=== PATIENT | female | born 2000 | race Hispanic/Latino ===

== ENCOUNTER 2024-03-18 21:33 | Emergency (ER) | payer BC, SELFPAY ==
[2024-03-18 21:35] VITALS: BP 112/84
--- NOTE | 2024-03-18 22:06 | ED.GENMED ---
History of Present Illness
General
Chief Complaint: Exposure-Chemical
Source: patient
Exam Limitations: none
Time Seen by Provider: 03/18/24 21:56
Travel History
Have you had any contact with someone who has COVID-19?: No
Do you have any symptoms of coronavirus? Fever > 100 degrees, chills, cough, shortness of breath, sore throat, loss of taste or smell, muscle aches, or headache?: No
History of Present Illness
History of Present Illness:
Line new detergent splashed in the patient's right eye and into her mouth and face about an hour ago. Complaining of irritation of the right eye. No other significant complaints. No contact
Past History
Past History
ED Past Medical History: None
ED Past Surgical History: Other (gastric sleeve surgery)
Social History
Tobacco: Non-smoker
Review of Systems
Review of Systems
All Other Systems: Not applicable
Phy Exam
Physical Exam
Physical Exam:
General: Nontoxic appearing in no distress
Skin: Warm and dry, no rash
Neuro: Alert, nontoxic, grossly nonfocal
Psychiatric: Good eye contact and appropriate
Eye: Very minimal conjunctival injection to the right eye. Cornea clear. This sharp. Fluorescein negative.
ENT: Face normal. Intraoral normal.
Course
Vital Signs
Initial and Last Documented VS:
Initial Vital Signs
Temp Pulse Resp BP Pulse Ox
97.8 F 100 22 112/84 100
03/18/24 21:35 03/18/24 21:35 03/18/24 21:35 03/18/24 21:35 03/18/24 21:35
Last Documented Vital Signs
Temp Pulse Resp BP Pulse Ox
97.8 F 100 22 112/84 100
03/18/24 21:35 03/18/24 21:35 03/18/24 21:35 03/18/24 21:35 03/18/24 21:35
*Critical Care Note
Total Time (30-74mins, 75-104mins- exclusive of procedures): Not Applicable
Update Note
Update Note:
Chemical detergent irritant. Will flush the eye. Stable for discharge
ED Attending Note
-
Portions of this chart may have been created with voice recognition software.� Occasional wrong word or��sound alike� substitutions may have occurred due to the inherent limitations of voice recognition software.
Discharge Plan
Departure
Patient Disposition: Home (Routine Discharge)
Date of Disposition: 03/18/24
Time of Disposition: 22:08
Patient with high blood pressure during this ER visit?: No
Discharge Problem:
Chemical exposure right eye and face
Instructions: Chemical Exposure to the Skin (DC)
Prescriptions:
No Action
ondansetron 4 MG tablet,disintegrating
4 mg PO TIDPRN PRN (Reason: nausea) Qty: 9 0RF
omeprazole 40 mg Capsule,Delayed Release(Dr/Ec)
40 mg PO DAILY
cholecalciferol (vitamin D3) [Vitamin D3] 125 mcg (5,000 unit) Tablet
1.25 PO WEEKLY
Centrum
1 tab PO DAILY
Vitamin C
1 tab PO DAILY
Patient Comments:
unsure of mg
Activity Restrictions/Additional Instructions:
This should all self resolve
Recheck with persistent irritation, drainage, visual troubles, facial burning or any other persistent symptoms
Interventions
Interventions:
*Risk Screen - Suicide Last Done: 03/18/24 21:35
*Neglect/Abuse Screening Last Done: 03/18/24 21:35
Discharge Date and Time
Print Language: LATVIAN
== END 2024-03-18 22:23 | disposition home or self-care (01) ==
LOC: EMR 21:33
PROVIDERS: EMERGENCY PHYSICIAN Emergency Medicine
DX: H57.89 Other specified disorders of eye and adnexa (principal); Z77.098 Contact with and (suspected) exposure to other hazardous, chiefly nonmedicinal, chemicals
CPT/HCPCS: 99282

== ENCOUNTER 2024-04-04 16:48 | Emergency (ER) | payer BC, SELFPAY ==
[2024-04-04 16:58] VITALS: BP 107/72
[2024-04-04 17:46] VITALS: BMI 38.9
[2024-04-04 17:55] VITALS: BP 113/72
--- NOTE | 2024-04-04 18:23 | ED.GENMED ---
History of Present Illness
General
Chief Complaint: Abdominal Pain
Source: patient
Exam Limitations: none
Time Seen by Provider: 04/04/24 18:02
Travel History
Have you had any contact with someone who has COVID-19?: No
Do you have any symptoms of coronavirus? Fever > 100 degrees, chills, cough, shortness of breath, sore throat, loss of taste or smell, muscle aches, or headache?: No
History of Present Illness
History of Present Illness:
This is a 23 year old female that comes in with c/o abd pain. States that around 2pm today she started with right lower abd pain. State that it feels like someone is punching her in the abd when she walks. States that the pain is constant but the
intensity goes up and down. States that she is nauseated and had diarrhea yesterday. states that she also feels Dizzy. Denies any fever, chill, chest pain, SOB, vomiting, headache, urinary burning.
Past History
Past History
ED Past Medical History: Psychiatric (Anxiety, Panic disorder)
ED Past Surgical History: Other (gastric sleeve surgery)
Social History
Tobacco: Vaping
Alcohol: Occasional
Personal: Single
Living: with family
Review of Systems
Review of Systems
All Other Systems: ROS reviewed and negative except as documented in HPI and ROS
Constitutional: Reports no symptoms; Denies fever or chills
EENT: Reports no symptoms
Respiratory: Reports no symptoms; Denies cough or trouble breathing
Cardiac: Reports no symptoms; Denies chest pain
ABD/GI: Reports abdominal pain and nausea; Denies vomiting or diarrhea
: Reports no symptoms; Denies dysuria, frequency or urgency
Musculoskeletal: Reports no symptoms
Skin: Reports no symptoms
Neurological: Reports dizzy; Denies headache
Psychiatric: Reports no symptoms
Phy Exam
General Physical Exam
General Presentation: no apparent distress
General age: appears stated age
General Skin: warm and dry
General Habitus: obese
General Mental: alert
General Hydration: appears well hydrated
ENT Exam
ENT Exam: TM's normal, pharynx normal and neck supple
Eye Exam
Eye Exam: EOMI
Cardiovascular Exam
Cardiovascular Exam: regular rate/rhythm, no edema, no murmur and normal peripheral pulses
Pulmonary Exam
Pulmonary Exam: lungs clear, no respiratory distress, no rales, chest non tender, no crackles, no rhonchi, no wheezing and no cough
Gastrointestinal Exam
Gastrointestinal Exam: normal bowel sounds, soft, no organomegaly, no pulsatile mass, non distended and tender (RLQ tenderness with palpation)
Musculoskeletal Exam
Musculoskeletal Exam: full ROM and no edema
Skin Exam
Skin Exam: normal color, warm/dry, no rash and no petechia
Psychiatric Exam
Psychiatric Exam: normal mood/affect
Course
Orders/Labs/Results
Orders:
Orders
04/04/24 18:22
CT Abd/pelvis W Iv Cont Urgent
Comment:
Reason For Exam: Right lower abd pain
0.9% Sodium Chloride 500 ml [Nss] 500 ml IV BOLUS
Test Result ONCE
04/04/24 19:00
Complete Blood Count/With Diff Urgent
Comprehensive Metabolic Panel Urgent
HCG, Serum Qualitative Screen Urgent
Lipase Urgent
04/04/24 19:04
Ketorolac [Toradol] 30 mg .ROUTE .STK-MED ONE
04/04/24 19:05
Ketorolac [Toradol] 30 mg IV NOW STA
04/04/24 19:15
Urinalysis Reflex To Culture Urgent
Date Specimen was Collected: 04/04/24
Time Specimen was Collected: 19:04
Abnormal Lab Results
04/04/24 04/04/24
19:00 19:15
WBC 11.0 H 10^3/uL
(4.8-10.8)
RBC 4.11 L 10^6/uL
(4.20-5.40)
Hct 36.2 L %
(37.0-47.0)
Absolute Lymphs (auto) 3.7 H 10^3/uL
(1.2-3.4)
Absolute Monos (auto) 0.8 H 10^3/uL
(0.1-0.6)
Urine Ketones Trace A
(Negative)
04/04/24 19:00
04/04/24 19:00
WBC very slightly elevated. Otherwise normal labs. Urine negative for infection. HCG negative. Lipase normal at 95,
Vital Signs
Initial and Last Documented VS:
Initial Vital Signs
Temp Pulse Resp BP Pulse Ox
98.5 F 86 17 107/72 100
04/04/24 16:58 04/04/24 16:58 04/04/24 16:58 04/04/24 16:58 04/04/24 16:58
Last Documented Vital Signs
Temp Pulse Resp BP Pulse Ox
98.5 F 80 16 98/67 97
04/04/24 16:58 04/04/24 18:00 04/04/24 18:00 04/04/24 20:00 04/04/24 19:02
MDM/Problems Addressed
Differential Diagnosis Includes:
Appendicitis, Ovarian cyst, renal calculus
MDM/Problems Addressed:
This is a 23 year old female that comes in with c/o right lower abd pain. states that this started at 2pm today.
Will check labs and get CT scan.
Back into see patient. Patient states that she is feeling better. Explained that her WBC are very slightly elevated. Her CT is negative for any acute process. Patient to increase her water intake to 8-8oz glasses daily. Tylenol or Ibuprofen for
pain. Follow up with the family doctor or her [employer]. Patient to return with vomiting, increased or changing pain.
Chronic conditions affecting care:
NA
Acute Exacerbation and/or Progression of Chronic Illness:
NA
*Radiology
Radiology exam reviewed: radiology read reviewed (CT-NO evidence of an acute inflammatory process in the abd or pelvis. stable Ct appearance of the gastric sleeve. )
*Pulse Oximetry
Patient hypoxic: no
*EKG
Interpreted by ED Provider?: NA
Rate: EKG- N/A
*Senior Financial Reporting Accountant Interpretation
Rate: Senior Financial Reporting Accountant- N/A
*Critical Care Note
Total Time (30-74mins, 75-104mins- exclusive of procedures): Not Applicable
ED Attending Note
-
Portions of this chart may have been created with voice recognition software.� Occasional wrong word or��sound alike� substitutions may have occurred due to the inherent limitations of voice recognition software.
Discharge Plan
Departure
Patient Disposition: Home (Routine Discharge)
Date of Disposition: 04/04/24
Time of Disposition: 22:24
Patient with high blood pressure during this ER visit?: No
Condition: Good
Covid-19: Not Applicable
Discharge Problem:
Lower abdominal pain
Instructions: Abdominal Pain
Prescriptions:
No Action
ondansetron 4 MG tablet,disintegrating
4 mg PO TIDPRN PRN (Reason: nausea) Qty: 9 0RF
omeprazole 40 mg Capsule,Delayed Release(Dr/Ec)
40 mg PO DAILY
cholecalciferol (vitamin D3) [Vitamin D3] 125 mcg (5,000 unit) Tablet
1.25 PO WEEKLY
Centrum
1 tab PO DAILY
Vitamin C
1 tab PO DAILY
Patient Comments:
unsure of mg
Referrals:
NONE,* [Family Provider] -
Activity Restrictions/Additional Instructions:
As discussed, your white blood cell count is very slightly elevated. Your CT is negative for any acute process, there is no renal calculus, inflammatory process and your appendix is normal. Ovaries appear normal. Please follow up with the family
doctor of the [employer]. You may use Tylenol 1000mg every 6 hours for pain or Ibuprofen 600mg every 6 hours with food for pain. IF YOU HAVE FEVER, INCREASED OR CHANGING PAIN, OR YOU HAVE ANY OTHER CONCERNS PLEASE RETURN TO THE EMERGENCY ROOM.
Interventions
Interventions:
*Risk Screen - Suicide Last Done: 04/04/24 17:46
*General Assessment Last Done: 04/04/24 17:46
*Neglect/Abuse Screening Last Done: 04/04/24 17:46
ED- Fall Risk Assessment Last Done: 04/04/24 17:46
*ED COVID-19 Vaccine History Last Done: 04/04/24 17:46
HY-Geijun-Vbrqajbpga Assessment Last Done: 04/04/24 17:46
Discharge Date and Time
Print Language: POLISH
[2024-04-04 19:06] LABS: % Basophils 0.6 % (0-2); % Eosinophils 1.6 % (0-6); % Immature Granulocytes 0.3 % (0-0.5); % Lymphocytes 33.9 % (20.5-51.1); % Monocytes 7.6 % (1.7-9.3); Absolute Basophils 0.1 10^3/uL (0-0.2); Absolute Eosinophils 0.2 10^3/uL (0-0.7); Absolute Lymphocytes 3.7 10^3/uL (1.2-3.4); Absolute Monocytes 0.8 10^3/uL (0.1-0.6); Absolute Neutrophils 6.2 10^3/uL (1.4-6.5); Hematocrit 36.2 % (37.0-47.0); Hemoglobin 12.3 g/dL (12.0-16.0); Mean Corpuscular Hgb 29.9 pg (27.0-31.0); Mean Corpuscular Volume 88.1 fL (81.0-99.0); Mean Platelet Volume 8.6 fL (7.4-10.4); Nucleated Red Blood Cells % 0 %; Platelet Count 388 10^3/uL (130-400); Red Blood Cell Count 4.11 10^6/uL (4.20-5.40); Red Cell Dist. Width 13.1 % (11.5-14.5)
[2024-04-04] MEDS: TORADOL 30 MG IV (19:15)
[2024-04-04] MEDS: NSS 500 IV (19:16)
[2024-04-04 19:17] VITALS: BP 119/72
[2024-04-04 19:22] LABS: HCG, Serum Qualitative Screen Negative
[2024-04-04 19:27] LABS: ALT (SGPT) 23 U/L (0-35); AST (SGOT) 24 U/L (14-36); Alkaline Phosphatase 92 U/L (38-126); Blood Urea Nitrogen 15 mg/dl (7-17); Calcium 9.5 mg/dl (8.4-10.2); Carbon Dioxide 25 mmol/L (22-30); Chloride 105 mmol/L (98-107); Estimated Creatinine Clearance > 125 ml/min; Glucose 90 mg/dl (70-99); Potassium 4.6 mmol/L (3.5-5.1); Sodium 137 mmol/L (135-145); Total Bilirubin 0.4 mg/dl (0.2-1.3); eGFR > 60.00
[2024-04-04 19:28] LABS: Lipase 95 U/L (23-300)
[2024-04-04 19:31] LABS: Urine Albumin Negative (Neg - Trace); Urine Bilirubin Negative (Negative); Urine Character Clear (Clear); Urine Color Yellow; Urine Glucose Negative (Negative); Urine Ketone Trace (Negative); Urine Leukocyte Negative (Negative); Urine Nitrite Negative (Negative); Urine Occult Blood Negative (Negative); Urine Specific Gravity 1.025 (<1.030); Urine Urobilinogen Negative (Neg - 1+)
[2024-04-04 20:00] VITALS: BP 98/67
[2024-04-04 22:32] VITALS: BP 112/70
== END 2024-04-04 22:46 | disposition home or self-care (01) ==
LOC: EMR 16:48
PROVIDERS: Clinical Nurse Specialist Family Health; EMERGENCY PHYSICIAN Emergency Medicine
DX: R10.31 Right lower quadrant pain (principal); R42 Dizziness and giddiness; R11.0 Nausea; F41.0 Panic disorder [episodic paroxysmal anxiety]; F41.9 Anxiety disorder, unspecified; F17.290 Nicotine dependence, other tobacco product, uncomplicated; Z98.84 Bariatric surgery status
CPT/HCPCS: 99285; 96361; 96374; 74177; 80053; 81003; 83690; 84703; 85025; Q9967

== ENCOUNTER 2024-05-17 17:26 | Emergency (ER) | payer BC, SELFPAY ==
[2024-05-17 17:30] VITALS: BP 130/83; BMI 38.0
[2024-05-17 17:49] LABS: Urine Albumin Negative (Neg - Trace); Urine Bilirubin Negative (Negative); Urine Character Clear (Clear); Urine Color Yellow; Urine Glucose Negative (Negative); Urine Ketone Negative (Negative); Urine Leukocyte Negative (Negative); Urine Nitrite Negative (Negative); Urine Occult Blood 4+ (Negative); Urine Specific Gravity 1.015 (<1.030); Urine Urobilinogen Negative (Neg - 1+)
[2024-05-17 17:51] LABS: % Basophils 0.3 % (0-2); % Eosinophils 0.1 % (0-6); % Immature Granulocytes 0.4 % (0-0.5); % Lymphocytes 4.8 % (20.5-51.1); % Monocytes 3.7 % (1.7-9.3); % Neutrophils 90.7 % (42.2-75.2); Absolute Lymphocytes 0.5 10^3/uL (1.2-3.4); Absolute Monocytes 0.4 10^3/uL (0.1-0.6); Absolute Neutrophils 8.7 10^3/uL (1.4-6.5); Hematocrit 36.1 % (37.0-47.0); Hemoglobin 12.6 g/dL (12.0-16.0); Mean Corp Hgb Conc. 34.9 g/dL (33.0-37.0); Mean Corpuscular Hgb 29.9 pg (27.0-31.0); Mean Corpuscular Volume 85.5 fL (81.0-99.0); Mean Platelet Volume 8.5 fL (7.4-10.4); Nucleated Red Blood Cells % 0 %; Platelet Count 283 10^3/uL (130-400); Red Blood Cell Count 4.22 10^6/uL (4.20-5.40); Red Cell Dist. Width 13.2 % (11.5-14.5); White Blood Cell Count 9.6 10^3/uL (4.8-10.8)
[2024-05-17 18:06] LABS: HCG, Serum Qualitative Screen Negative
[2024-05-17 18:10] LABS: ALT (SGPT) 24 U/L (0-35); AST (SGOT) 29 U/L (14-36); Albumin 4.2 g/dl (3.5-5.0); Alkaline Phosphatase 92 U/L (38-126); Blood Urea Nitrogen 12 mg/dl (7-17); Calcium 9.3 mg/dl (8.4-10.2); Carbon Dioxide 21 mmol/L (22-30); Chloride 102 mmol/L (98-107); Estimated Creatinine Clearance > 125 ml/min; Glucose 105 mg/dl (70-99); Potassium 3.8 mmol/L (3.5-5.1); Sodium 131 mmol/L (135-145); Total Bilirubin 0.9 mg/dl (0.2-1.3); Total Protein 7.2 g/dl (6.3-8.2); eGFR > 60.00
[2024-05-17 18:22] LABS: Urine Bacteria Few (Negative); Urine Red Blood Cell 50-60 /HPF (0-2)
[2024-05-17 19:29] VITALS: BP 110/65
[2024-05-17] MEDS: NSS 1000 IV (19:45)
[2024-05-17] MEDS: ZOFRAN 4 MG IV (19:46)
[2024-05-17] MEDS: TORADOL 15 MG IV (19:48)
--- NOTE | 2024-05-17 20:14 | ED.GENMED ---
History of Present Illness
General
Chief Complaint: Abdominal Pain
Source: patient
Exam Limitations: none
Time Seen by Provider: 05/17/24 19:11
History of Present Illness
History of Present Illness:
23-year-old female presents with abdominal pain nausea diarrhea. She did start her mental cycle yesterday. She typically does not vomit with her menstrual cycle. She notes pelvic cramps consistent with her menstrual cycle. She has been seen here
recently for abdominal pain and had a workup including CAT scan. No known sick contacts. No other complaints at this time
Past History
Past History
ED Past Medical History: Psychiatric (Anxiety, Panic disorder)
ED Past Surgical History: Other (gastric sleeve surgery)
Social History
Tobacco: Vaping
Alcohol: Occasional
Personal: Single
Living: with family
Phy Exam
Physical Exam
Physical Exam:
General: Well-appearing nontoxic female no acute respiratory distress
HEENT: Normocephalic atraumatic posterior pharynx without erythema or exudate neck is supple
Heart: Regular rate and rhythm no murmurs
Lungs: Clear no wheeze
Abdomen is soft grossly nontender no guarding rebound normal bowel sounds nondistended
Extremities: No cyanosis or edema
Course
Orders/Labs/Results
Orders:
Orders
05/17/24 17:34
Test Result ONCE
05/17/24 17:39
UA Reflex to Culture [Urinalysis Reflex To Culture] Urgent
Date Specimen was Collected: 05/17/24
Time Specimen was Collected: 17:34
Urine Microscopic Reflex Cult Urgent
05/17/24 17:46
Type+Screen Urgent
CMP [Comprehensive Metabolic Panel] Urgent
Complete Blood Count/With Diff Urgent
HCG, Serum Qualitative Screen Urgent
Comment: Notify provider if positive test present
05/17/24 19:20
0.9% Sodium Chloride 1000 ml [Nss] 1,000 ml IV BOLUS
Ketorolac [Toradol] 15 mg IV NOW STA
Ondansetron Injectable [Zofran] 4 mg IV NOW STA
05/17/24 19:55
COVID-19 Antigen Urgent
Source: Nasal Swab
05/17/24 20:53
CR Chest - 2 Views Urgent
Comment:
Reason For Exam: cough
05/17/24 21:51
Acetaminophen [Tylenol] 1,000 mg PO NOW STA
Abnormal Lab Results
05/17/24 05/17/24
17:39 17:46
Hct 36.1 L %
(37.0-47.0)
Absolute Neuts (auto) 8.7 H 10^3/uL
(1.4-6.5)
Absolute Lymphs (auto) 0.5 L 10^3/uL
(1.2-3.4)
Neutrophils % 90.7 H %
(42.2-75.2)
Lymphocytes % 4.8 L %
(20.5-51.1)
Sodium 131 L mmol/L
(135-145)
Carbon Dioxide 21 L mmol/L
(22-30)
Glucose 105 H mg/dl
(70-99)
Ur Occult Blood Reflex 4+ A
(Negative)
Urine RBC 50-60 A /HPF
(0-2)
Urine Bacteria (Reflex) Few A
(Negative)
05/17/24 17:46
05/17/24 17:46
Vital Signs
Initial and Last Documented VS:
Initial Vital Signs
Temp Pulse Resp BP Pulse Ox
100.6 F H 126 20 130/83 98
05/17/24 17:30 05/17/24 17:30 05/17/24 17:30 05/17/24 17:30 05/17/24 17:30
Last Documented Vital Signs
Temp Pulse Resp BP Pulse Ox
98.1 F 91 18 107/53 97
05/17/24 21:51 05/17/24 21:51 05/17/24 21:51 05/17/24 21:51 05/17/24 21:51
MDM/Problems Addressed
Differential Diagnosis Includes:
Patient had temperature of 100.6 at triage. She notes nausea vomiting diarrhea. She also current menstrual cycle. Question possible viral illness. Abdomen exam benign. Considered imaging but no indication to do so given benign exam and she did
just have a CT scan 1 month ago.
*Critical Care Note
Total Time (30-74mins, 75-104mins- exclusive of procedures): Not Applicable
Update Note
Update Note:
Patient reevaluated. She is feeling better after fluids and Tylenol. Chest x-ray clear COVID-negative. Suspect underlying viral illness on top of her menstrual cycle. Will prescribe Zofran for nausea encourage plenty clear liquids stable for
discharge
ED Attending Note
-
Portions of this chart may have been created with voice recognition software.� Occasional wrong word or��sound alike� substitutions may have occurred due to the inherent limitations of voice recognition software.
Discharge Plan
Departure
Patient Disposition: Home (Routine Discharge)
Date of Disposition: 05/17/24
Time of Disposition: 22:45
Patient with high blood pressure during this ER visit?: No
Discharge Problem:
Acute viral syndrome
Instructions: Nausea and Vomiting, Adult (DC)
Prescriptions:
New
ondansetron 4 mg tablet,disintegrating
4 mg PO Q8H PRN (Reason: nausea and vomiting) Qty: 10 0RF
No Action
ondansetron 4 MG tablet,disintegrating
4 mg PO TIDPRN PRN (Reason: nausea) Qty: 9 0RF
omeprazole 40 mg Capsule,Delayed Release(Dr/Ec)
40 mg PO DAILY
cholecalciferol (vitamin D3) [Vitamin D3] 125 mcg (5,000 unit) Tablet
1.25 PO WEEKLY
Centrum
1 tab PO DAILY
Vitamin C
1 tab PO DAILY
Patient Comments:
unsure of mg
Referrals:
UNKNOWN - PT NOT,INTERVIEWE [Family Provider] -
Activity Restrictions/Additional Instructions:
Drink plenty clear liquids. Use Zofran if needed for nausea. Advance to bland diet as tolerated. Return if worse otherwise follow-up with family doctor
Interventions
Interventions:
*Risk Screen - Suicide Last Done: 05/17/24 17:30
*Neglect/Abuse Screening Last Done: 05/17/24 17:30
ED- Fall Risk Assessment Last Done: 05/17/24 17:30
IC-Dpztda-Bjpcmbovir Assessment Last Done: 05/17/24 18:47
Discharge Date and Time
Print Language: TURKMEN
[2024-05-17 20:23] LABS: COVID-19 Antigen Negative (Negative)
[2024-05-17 21:51] VITALS: BP 107/53
[2024-05-17] MEDS: TYLENOL 1000 MG PO (22:03)
== END 2024-05-17 22:51 | disposition home or self-care (01) ==
LOC: EMR 17:26
PROVIDERS: Physician Assistant; Student in an Organized Health Care Education/Training Program; EMERGENCY PHYSICIAN Emergency Medicine
DX: B34.9 Viral infection, unspecified (principal); F17.290 Nicotine dependence, other tobacco product, uncomplicated
CPT/HCPCS: 99284; 96374; 96375; 96361; 71046; 80053; 81003; 81015; 84703; 85025; 86850; 86900; 86901; 87811

== ENCOUNTER → 2025-04-24 14:59 | Outpatient (REF) | payer BC, SELFPAY | LOC: EMG 14:59 | PROVIDERS: ATTENDING PHYSICIAN Orthopaedic Surgery | DX: M25.531 Pain in right wrist (principal); R20.0 Anesthesia of skin | CPT/HCPCS: 95886; 95909 ==